=== PATIENT | male | born 1940 | race Caucasian/White ===

== ENCOUNTER 2017-07-08 13:44 | Outpatient (CLI) | payer MEDICARE, BC ==
[~2017-07-08 13:44] MED LIST: Iopamidol 370 76% 100 ML VIAL ONE
== END 2017-07-08 13:45 | disposition home or self-care (01) ==
LOC: BICCT 13:44
DX: R91.8 Other nonspecific abnormal finding of lung field (principal)
CPT/HCPCS: 71270; 82565

== ENCOUNTER 2017-07-26 07:56 | Outpatient (CLI) | payer MEDICARE, BC ==
--- NOTE | 2017-07-26 09:36 | MRI ---
MRI LEFT SHOULDER WITHOUT CONTRAST: Date: 07/26/17 HISTORY: Left shoulder pain, M25.512. Shoulder pain for 3 months. COMPARISON: None. TECHNIQUE: Multiplanar, multisequence MRI of left shoulder without contrast. FINDINGS: Biceps Tendon: There is complete rupture of the biceps tendon at its interarticular portion. There is severe tearing of the tendon fibers. No normal intraarticular tendon can be seen, although is likely scarred down t o the undersurface of the supraspinatus tendon. There are wavy wisps of fibers along the intertrabecu lar groove. Rotator Cuff: There is a full thickness, near full width supraspinatus tendon tear with a few posterior fibers colleen ining. It tears from the footplate with fibers retracted mid humeral head. The fibers are severely th ickened and tendinotic. There is moderate tendinosis of the infraspinatus tendon with interstitial te aring at the footplate. Subscapularis has some deep fiber undersurface tearing. Muscles: There is mild edema of the subscapularis myotendinous junction. Mild edema of the supraspinatus. The supraspinatus muscles are without significant atrophy. Bones: Moderate hypertrophic degenerative changes of the acromioclavicular joint. Type I acromion. No acute fracture. No malalignment. Labrum: There is severe tearing and macerations of the superior labrum. There is also evidence of old tear of the posterior labrum. Soft Tissues. Moderate subacromial/subdeltoid bursal effusion with communication with the glenohumeral joint with m oderate synovitis and free bodies throughout the axillary pouch. IMPRESSION: 1. Full thickness, near full width supraspinatus tendon tear from the footplate retracted to mid hum eral head. Retracted fibers are severely thickened and tendinotic. 2. Chronic rupture of the biceps tendon with no normal intraarticular biceps tendon seen, which may be scarred down to the undersurface of the supraspinatus tendon. 3. Large joint effusion with synovitis and multiple free small bodies throughout the joint. 4. Maceration of superior labrum with tearing posteriorly. 5. No significant atrophy of the rotator cuff musculature. POS: [facility]
== END 2017-07-26 07:57 | disposition home or self-care (01) ==
LOC: SCSMRI 07:56
DX: M75.102 Unspecified rotator cuff tear or rupture of left shoulder, not specified as traumatic (principal); M25.412 Effusion, left shoulder; M65.9 Synovitis and tenosynovitis, unspecified; M66.822 Spontaneous rupture of other tendons, left upper arm